=== PATIENT | male | born 1935 | race Caucasian/White ===

== ENCOUNTER → 2017-02-07 | Outpatient (CLI) | payer MEDICARE ==
[~2017-02-07] MED LIST: ASPI81CH32 PO; ASPI81TA45 PO; CIPR500T89 PO; CODCAP PO; ECOT81TA5 PO; EYE CAP PO; HYDR12.55 PO; ICAPTAB PO; PRAV40TA2 PO; [UNRECOGNIZED DRUG - OTHER] PO
--- NOTE | 2017-02-07 09:39 | REP ---
CT HEAD WITHOUT CONTRAST: HISTORY: Dementia. Areas of decreased attenuation are present in the periventricular and subcortical white matter. This represents small vessel ischemic disease. There is no intraparenchymal hemorrhage, mass or midline shift. The ventricular system and cortical sulci are dilated consistent with moderate volume loss. There is no extracerebral collection. The visualized sinuses are clear. IMPRESSION: 1. Small vessel ischemic disease. 2. Moderate volume loss. Signed by Kevin Flores MD 02/07/2017 09:44 A
--- NOTE | 2017-02-07 11:58 | REP ---
CAROTID ULTRASOUND: Real-time ultrasound evaluation and duplex Doppler interrogation of the extracranial carotid vasculature is performed. Moderate partially calcified plaque is seen in both common carotid arteries and carotid bulbs extending into the internal and external carotid arteries, more significantly on the right than on the left. There is elevated peak systolic velocity in the right internal carotid artery with elevation of the ICA to CCA ratio. Findings are consistent with stenosis of the right internal carotid artery between 60 and 79%. Luminal narrowing of the left internal carotid artery is less than 50%. There is normal direction of flow in both vertebral arteries. 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 Luminal narrowing left internal carotid artery less than 50%. Signed by Franklin Olson MD 02/07/2017 05:42 P
== END ==
LOC: M RAD 08:49
PROVIDERS: ATTEND Physician Assistant Medical
DX: I63.8 Other cerebral infarction (principal); F02.81 Dementia in other diseases classified elsewhere, unspecified severity, with behavioral disturbance; R20.2 Paresthesia of skin

== ENCOUNTER → 2017-08-30 | Outpatient (CLI) | payer MEDICARE ==
[~2017-08-30] MED LIST changes: +CIPR-249 PO; -CIPR500T89 PO
== END ==
LOC: M SMT 09:40
PROVIDERS: ATTEND Urology
DX: R97.20 Elevated prostate specific antigen [PSA] (principal)

== ENCOUNTER → 2017-09-07 | Outpatient (REF) | payer MEDICARE | LOC: M SMT 16:57 | PROVIDERS: ATTEND Urology | DX: R39.9 Unspecified symptoms and signs involving the genitourinary system (principal) | CPT/HCPCS: 51798; 81001; G0463 ==

== ENCOUNTER → 2017-09-29 | Outpatient (CLI) | payer MEDICARE ==
[2017-09-29 13:23] LABS: INR 1.86
== END ==
LOC: M SMT 09:49
PROVIDERS: ATTEND Family Medicine
DX: Z51.81 Encounter for therapeutic drug level monitoring (principal); Z79.01 Long term (current) use of anticoagulants

== ENCOUNTER → 2017-10-31 | Outpatient (CLI) | payer MEDICARE ==
[2017-10-31 13:08] LABS: INR 3.86; PROTHROMBIN TIME 39.9 SECONDS (12.4-14.5)
== END ==
LOC: M SMT 09:57
DX: Z51.81 Encounter for therapeutic drug level monitoring (principal); Z79.01 Long term (current) use of anticoagulants
CPT/HCPCS: 85610

== ENCOUNTER → 2017-11-29 | Outpatient (CLI) | payer MEDICARE ==
[2017-11-29 13:40] LABS: INR 3.31; PROTHROMBIN TIME 35.2 SECONDS (12.4-14.5)
== END ==
LOC: M SMT 10:52
DX: Z79.01 Long term (current) use of anticoagulants (principal)
CPT/HCPCS: 85610

== ENCOUNTER → 2017-12-28 | Outpatient (CLI) | payer MEDICARE ==
[2017-12-28 18:52] LABS: INR 2.81; PROTHROMBIN TIME 30.8 SECONDS (12.4-14.5)
== END ==
LOC: M SMT 13:00
DX: Z51.81 Encounter for therapeutic drug level monitoring (principal); Z79.01 Long term (current) use of anticoagulants
CPT/HCPCS: 85610

== ENCOUNTER → 2018-05-15 | Outpatient (CLI) | payer MEDICARE | LOC: M WHC 12:30 | DX: M85.851 Other specified disorders of bone density and structure, right thigh (principal); M85.852 Other specified disorders of bone density and structure, left thigh | CPT/HCPCS: 77080 ==

== ENCOUNTER → 2018-08-15 | Outpatient (CLI) | payer MEDICARE ==
[2018-08-16 14:49] LABS: PSA TOTAL 3.4 ng/mL (0.0-4.0)
== END ==
LOC: M WUC 11:00
DX: N40.1 Benign prostatic hyperplasia with lower urinary tract symptoms (principal)
CPT/HCPCS: 84154

== ENCOUNTER 2019-02-21 10:43 | Day surgery (SDC) | payer MEDICARE ==
[~2019-02-21] VITALS: Ht 154.9 cm; Wt 82.6 kg
[~2019-02-21 10:43] MED LIST changes: +ALEN70TA74 PO; +ARIC1TAB2 PO; -ASPI81CH32 PO; +ASPI81CH33 PO; +ATOR40TA75 PO; -CODCAP PO; +CODCAP4 PO; +LIDOCAINE 1% MDV 20ML VIAL SQ PRN; +LIDOCAINE 2% INJ 100 MG/5 ML SDV (FOR ANES.) As Ordered ONE; +LR 1,000 ML IV ONE; +MIDAZOLAM INJ 2 MG/2 ML VIAL (J2250) As Ordered ONE; +MUCI600T31 PO; +ONDANSETRON 4MG/2ML VIAL (J2405) As Ordered ONE; +PROPOFOL 200 MG/20 ML VIAL As Ordered ONE; +SYST1SOL4 OP; +WARF4TAB51 PO; +ceFAZolin SOD 1 GM in D5W MINI-BAG PLUS 50 ML IV ONE; +dexameTHASONE 4 MG/ML 1ML VIAL (J1100) As Ordered ONE; +fentaNYL 100 MCG/2 ML INJECTION (J3010) As Ordered ONE
[2019-02-21 11:37] LABS: INR 1.59; PROTHROMBIN TIME 19.2 SECONDS (12.1-14.4)
[2019-02-21] MEDS ORDERED: LIDOCAINE 1% SDV INJ 30 ML VIAL As Ordered ONE (13:19)
[2019-02-21] MEDS ORDERED: LIDOCAINE 2% JELLY 6 ML SYRINGE As Ordered ONE (14:10)
--- NOTE | 2019-02-21 14:43 | RO ---
DATE OF OPERATION: 02/21/2019 PREOPERATIVE DIAGNOSIS: Implantable loop recorder in situ. POSTOPERATIVE DIAGNOSIS: Implantable loop recorder in situ. FINDINGS: Implantable loop recorder in situ. PROCEDURE PERFORMED: Explantation of [employer] implantable loop recorder. SURGEON: Felipe Trinidad MD [place] LEGAL SECRETARY: None. ANESTHESIA: Lidocaine 1%/monitored anesthetic care. SPECIMENS: Old Medtronic LINQ implantable loop recorder. ESTIMATED BLOOD LOSS: Less than 3 mL. No blood products replaced. No drains. COMPLICATIONS: No complications. PROCEDURE DESCRIPTION: The patient was prepped and draped over the left anterior chest. Lidocaine 1% was used as a local anesthetic. An incision less than a centimeter was made with a 15 blade over the medial aspect of the loop recorder. The blade was used to dissect down to the level of the anterior capsule overlying the loop recorder. A snap was placed over the loop recorder and used to pull the loop recorder out of the pocket. A single #2-0 Vicryl stitch was used to approximate the deep layer. Next, a #4-0 Biosyn suture was used to approximate the skin temporarily by placing it subcutaneously along the incision line with the ends of the suture material protruding from both ends of the incision about 1 cm. Next, three layers of DERMABOND was applied. The Biosyn suture was then removed entirely from the incision line. The patient tolerated the procedure well without any immediate complications.
[2019-02-21 14:45] VITALS: BP 158/67
== END 2019-02-21 15:00 | disposition home or self-care (01) ==
LOC: M SDC 10:43
PROVIDERS: ATTEND Internal Medicine Cardiovascular Disease
DX: I48.91 Unspecified atrial fibrillation (principal); I25.10 Atherosclerotic heart disease of native coronary artery without angina pectoris; I10 Essential (primary) hypertension; K44.9 Diaphragmatic hernia without obstruction or gangrene; Z87.891 Personal history of nicotine dependence; Z79.01 Long term (current) use of anticoagulants; Z79.899 Other long term (current) drug therapy; F03.90 Unspecified dementia, unspecified severity, without behavioral disturbance, psychotic disturbance, mood disturbance, and anxiety; Z88.2 Allergy status to sulfonamides; Z86.73 Personal history of transient ischemic attack (TIA), and cerebral infarction without residual deficits
CPT/HCPCS: 33286; 36415; 85610; J0690; J1100; J2250; J2405; J3010

== ENCOUNTER → 2019-06-14 | Outpatient (CLI) | payer MEDICARE ==
[~2019-06-14] MED LIST changes: -LIDOCAINE 1% MDV 20ML VIAL SQ PRN; -LIDOCAINE 2% INJ 100 MG/5 ML SDV (FOR ANES.) As Ordered ONE; -LR 1,000 ML IV ONE; -MIDAZOLAM INJ 2 MG/2 ML VIAL (J2250) As Ordered ONE; -ONDANSETRON 4MG/2ML VIAL (J2405) As Ordered ONE; -PROPOFOL 200 MG/20 ML VIAL As Ordered ONE; -ceFAZolin SOD 1 GM in D5W MINI-BAG PLUS 50 ML IV ONE; -dexameTHASONE 4 MG/ML 1ML VIAL (J1100) As Ordered ONE; -fentaNYL 100 MCG/2 ML INJECTION (J3010) As Ordered ONE
[2019-06-14 14:06] LABS: BASO # 0.1 10^3/uL (0.0-0.2); BASO % 0.8 % (0.0-1.0); EOS # 0.2 10^3/uL (0.0-0.5); EOS % 3.5 % (0.0-3.0); HEMATOCRIT 42.7 % (42.0-52.0); HEMOGLOBIN 13.9 g/dl (13.5-17.5); LYMPH # 1.3 10^3/uL (1.5-5.0); LYMPH % 21.4 % (24.0-44.0); MEAN CORPUSCULAR HEMOGLOBIN 30.9 pg (27.0-33.0); MEAN CORPUSCULAR HGB CONC 32.6 g/dl (32.0-36.5); MEAN CORPUSCULAR VOLUME 94.9 fl (80.0-96.0); MONO # 0.7 10^3/uL (0.0-0.8); MONO % 10.7 % (0.0-5.0); NEUTROPHILS # 3.9 10^3/uL (1.5-8.5); NEUTROPHILS % 63.1 % (36.0-66.0); PLATELET COUNT, AUTOMATED 250 10^3/uL (150-450); WHITE BLOOD COUNT 6.3 10^3/uL (4.0-10.0)
[2019-06-14 14:11] LABS: APPEARANCE, URINE CLEAR (CLEAR); BACTERIA, URINE AUTO NEGATIVE (NEGATIVE); BILIRUBIN, URINE AUTO NEGATIVE (NEGATIVE); BLOOD, URINE BLOOD NEGATIVE (NEGATIVE); COLOR, URINE YELLOW (YELLOW); GLUCOSE, URINE (UA) AUTO NEGATIVE (NEGATIVE); KETONE, URINE AUTO NEGATIVE (NEGATIVE); LEUKOCYTE ESTERASE, URINE AUTO TRACE (NEGATIVE); MUCUS, URINE SMALL (NEGATIVE); NITRITE, URINE AUTO NEGATIVE (NEGATIVE); PROTEIN, URINE AUTO NEGATIVE (NEGATIVE); RBC, URINE AUTO 4 /HPF (0-3); SPECIFIC GRAVITY URINE AUTO 1.012 (1.002-1.035); SQUAMOUS EPITHELIAL CELL UR AU 0 /HPF (0-6); UROBILINOGEN, URINE AUTO 0.2 mg/dL (0.0-2.0); WBC, URINE AUTO 1 /HPF (0-3)
[2019-06-14 14:28] LABS: ALBUMIN 3.1 GM/DL (3.2-5.2); ALT/SGPT 30 U/L (12-78); BILIRUBIN,TOTAL 0.6 MG/DL (0.2-1.0); BLOOD UREA NITROGEN 13 MG/DL (7-18); CALCIUM LEVEL 8.7 MG/DL (8.8-10.2); CARBON DIOXIDE LEVEL 29 MEQ/L (21-32); CHLORIDE LEVEL 106 MEQ/L (98-107); CHOLESTEROL LEVEL 152 MG/DL (<200); CHOLESTEROL RISK RATIO 4.342 (<5); CREATININE FOR GFR 1.11 MG/DL (0.70-1.30); FREE T4 0.98 NG/DL (0.76-1.46); GLOMERULAR FILTRATION RATE > 60.0 (>35); GLUCOSE, FASTING 88 MG/DL (70-100); HDL CHOLESTEROL 35 MG/DL (>40); LDL CHOLESTEROL 65 MG/DL (<100); NON-HDL-C 117 MG/DL; POTASSIUM SERUM 4.3 MEQ/L (3.5-5.1); SODIUM LEVEL 142 MEQ/L (136-145); TOTAL PROTEIN 6.2 GM/DL (6.4-8.2); TRIGLYCERIDES LEVEL 259 MG/DL (<150)
== END ==
LOC: M WUC 08:18
PROVIDERS: ATTEND Family Medicine
DX: E78.5 Hyperlipidemia, unspecified (principal)

== ENCOUNTER → 2019-06-21 | Outpatient (REF) | payer MEDICARE ==
[2019-06-21 12:15] LABS: APPEARANCE, URINE HAZY (CLEAR); BACTERIA, URINE AUTO NEGATIVE (NEGATIVE); BILIRUBIN, URINE AUTO NEGATIVE (NEGATIVE); BLOOD, URINE BLOOD NEGATIVE (NEGATIVE); COLOR, URINE YELLOW (YELLOW); GLUCOSE, URINE (UA) AUTO NEGATIVE (NEGATIVE); KETONE, URINE AUTO NEGATIVE (NEGATIVE); LEUKOCYTE ESTERASE, URINE AUTO TRACE (NEGATIVE); MUCUS, URINE SMALL (NEGATIVE); NITRITE, URINE AUTO NEGATIVE (NEGATIVE); PROTEIN, URINE AUTO NEGATIVE (NEGATIVE); RBC, URINE AUTO 9 /HPF (0-3); SQUAMOUS EPITHELIAL CELL UR AU 0 /HPF (0-6); UROBILINOGEN, URINE AUTO 0.2 mg/dL (0.0-2.0); WBC, URINE AUTO 10 /HPF (0-3)
== END ==
LOC: M LAB REF 11:18
PROVIDERS: ATTEND Family Medicine
DX: R31.29 Other microscopic hematuria (principal)

== ENCOUNTER → 2019-06-27 | Outpatient (REF) | payer MEDICARE ==
[2019-06-27 19:38] LABS: APPEARANCE, URINE CLEAR (CLEAR); BACTERIA, URINE AUTO NEGATIVE (NEGATIVE); BILIRUBIN, URINE AUTO NEGATIVE (NEGATIVE); BLOOD, URINE BLOOD NEGATIVE (NEGATIVE); COLOR, URINE YELLOW (YELLOW); GLUCOSE, URINE (UA) AUTO NEGATIVE (NEGATIVE); KETONE, URINE AUTO NEGATIVE (NEGATIVE); LEUKOCYTE ESTERASE, URINE AUTO NEGATIVE (NEGATIVE); MUCUS, URINE SMALL (NEGATIVE); NITRITE, URINE AUTO NEGATIVE (NEGATIVE); PROTEIN, URINE AUTO NEGATIVE (NEGATIVE); RBC, URINE AUTO 9 /HPF (0-3); SPECIFIC GRAVITY URINE AUTO 1.019 (1.002-1.035); SQUAMOUS EPITHELIAL CELL UR AU 0 /HPF (0-6); UROBILINOGEN, URINE AUTO 0.2 mg/dL (0.0-2.0); WBC, URINE AUTO 1 /HPF (0-3)
== END ==
LOC: M LAB REF 16:54
PROVIDERS: ATTEND Family Medicine
DX: R31.29 Other microscopic hematuria (principal)

== ENCOUNTER → 2019-07-04 | Outpatient (REF) | payer MEDICARE ==
[2019-07-04 18:05] LABS: APPEARANCE, URINE CLEAR (CLEAR); BACTERIA, URINE AUTO NEGATIVE (NEGATIVE); BILIRUBIN, URINE AUTO NEGATIVE (NEGATIVE); BLOOD, URINE BLOOD NEGATIVE (NEGATIVE); COLOR, URINE YELLOW (YELLOW); GLUCOSE, URINE (UA) AUTO NEGATIVE (NEGATIVE); KETONE, URINE AUTO NEGATIVE (NEGATIVE); LEUKOCYTE ESTERASE, URINE AUTO NEGATIVE (NEGATIVE); MUCUS, URINE SMALL (NEGATIVE); NITRITE, URINE AUTO NEGATIVE (NEGATIVE); PROTEIN, URINE AUTO NEGATIVE (NEGATIVE); RBC, URINE AUTO 7 /HPF (0-3); SPECIFIC GRAVITY URINE AUTO 1.021 (1.002-1.035); SQUAMOUS EPITHELIAL CELL UR AU 0 /HPF (0-6); UROBILINOGEN, URINE AUTO 0.2 mg/dL (0.0-2.0); WBC, URINE AUTO 2 /HPF (0-3)
== END ==
LOC: M LAB REF 16:30
PROVIDERS: ATTEND Family Medicine
DX: R31.29 Other microscopic hematuria (principal)

== ENCOUNTER → 2019-07-12 | Outpatient (CLI) | payer MEDICARE | LOC: M WUC 10:40 | PROVIDERS: ATTEND Family Medicine | DX: R79.89 Other specified abnormal findings of blood chemistry (principal) ==

== ENCOUNTER 2019-10-06 20:19 | Emergency (ER) | payer MEDICARE ==
[~2019-10-06] VITALS: Ht 157.5 cm; Wt 85.0 kg
[~2019-10-06 20:19] MED LIST changes: -CODCAP4 PO; +CODCAP5 PO
[2019-10-06] MEDS ORDERED: MECLIZINE 25 MG TABLET PO ONE (21:00)
--- NOTE | 2019-10-06 21:43 | REPVR ---
PROCEDURE INFORMATION: Exam: CT Head Without Contrast Exam date and time: 10/06/19 (9:09pm) Age: 84 years old Clinical indication: Syncope and collapse TECHNIQUE: Imaging protocol: Computed tomography of the head without contrast. Radiation optimization: All CT scans at this facility use at least one of these dose optimization techniques: automated exposure control; mA and/or kV adjustment per patient size (includes targeted exams where dose is matched to clinical indication); or iterative reconstruction. COMPARISON: CT HEAD of 02/07/17 FINDINGS: Brain: No acute hemorrhage. No cerebral edema. Age-related atrophic changes are noted. Periventricular and subcortical areas of low attenuation, compatible with chronic small vessel microischemic changes.Normal. No hemorrhage. Unremarkable white matter. No mass effect. Ventricles: Probable compensatory dilatation of the ventricles, secondary to central atrophy. Bones/joints: Unremarkable. No acute fracture. Sinuses: Visualized sinuses are unremarkable. No fluid levels. Mastoid air cells: Visualized mastoid air cells are well aerated. Soft tissues: Unremarkable. IMPRESSION: No acute intracranial pathology is appreciated. Chronic atrophic and microischemic changes are noted. In general, a similar appearance was noted on 02/07/17. Electronically signed by: Lily Vaughn On 10/06/2019 21:43:15 PM
[2019-10-06 22:20] LABS: BASO % 0.5 % (0.0-1.0); EOS # 0.1 10^3/uL (0.0-0.5); EOS % 1.8 % (0.0-3.0); HEMATOCRIT 43.7 % (42.0-52.0); HEMOGLOBIN 14.1 g/dl (13.5-17.5); LYMPH % 12.7 % (24.0-44.0); MEAN CORPUSCULAR HEMOGLOBIN 30.3 pg (27.0-33.0); MEAN CORPUSCULAR HGB CONC 32.3 g/dl (32.0-36.5); MONO # 0.7 10^3/uL (0.0-0.8); MONO % 8.8 % (0.0-5.0); NEUTROPHILS % 75.7 % (36.0-66.0); PLATELET COUNT, AUTOMATED 276 10^3/uL (150-450); RED BLOOD COUNT 4.65 10^6/uL (4.30-6.10); WHITE BLOOD COUNT 7.9 10^3/uL (4.0-10.0)
[2019-10-06 22:36] LABS: BLOOD UREA NITROGEN 16 MG/DL (7-18); CALCIUM LEVEL 8.6 MG/DL (8.8-10.2); CARBON DIOXIDE LEVEL 27 MEQ/L (21-32); CHLORIDE LEVEL 109 MEQ/L (98-107); CK-MB VALUE MASS < 1.0 NG/ML (<3.6); CPK CREATINE PHOSPHOKINASE 61 U/L (39-308); CREATININE FOR GFR 1.12 MG/DL (0.70-1.30); FREE T4 0.93 NG/DL (0.76-1.46); GLOMERULAR FILTRATION RATE > 60.0 (>35); GLUCOSE, FASTING 126 MG/DL (70-100); MB/CK RELATIVE INDEX 1.64 (< OR =4); POTASSIUM SERUM 4.2 MEQ/L (3.5-5.1); SODIUM LEVEL 143 MEQ/L (136-145); TROPONIN I < 0.02 NG/ML (< 0.10)
[2019-10-06 22:37] LABS: INR 2.86; PROTHROMBIN TIME 29.9 SECONDS (11.8-14.0)
[2019-10-06 23:01] VITALS: BP 148/68
[2019-10-06] MEDS ORDERED: MECL-68 PO (23:20)
--- NOTE | 2019-10-07 07:42 | REP ---
Clinical: Syncope . Comparison: 12/05/2014 . Findings: Cardiomegaly. The lung awad are clear without acute consolidation, effusion, or pneumothorax. Skeletal structures are intact. Impression: No acute cardiopulmonary process appreciated. Electronically Signed by Mason Horn MD 10/07/2019 07:33 A
--- NOTE | 2019-10-07 15:44 | ECGEPIP ---
[facility] - ED Test Date: 2019-10-06 Pat Name: ALEXANDRA MARCANO Department: Room: - Gender: Male Community Relations Liaison: KCJ : 1935 Requested By: CT LUCERO Order Number: [id number] Reading MD: Sarwat Cool Measurements Intervals [place] Rate: 74 P: -1 NE: 136 QRS: 10 QRSD: 85 T: 76 QT: 387 QTc: 430 Interpretive Statements SINUS RHYTHM NONSPECIFIC T-WAVE ABNORMALITY SIMILAR TO 12/05/14 Electronically Signed on 10-07-2019 15:44:28 EST by Sarwat Cool
== END 2019-10-06 23:42 | disposition home or self-care (01) ==
LOC: M ED 20:19
DX: R42 Dizziness and giddiness (principal); I51.9 Heart disease, unspecified; Z79.01 Long term (current) use of anticoagulants; Z79.899 Other long term (current) drug therapy; Z88.2 Allergy status to sulfonamides; Z88.1 Allergy status to other antibiotic agents

== ENCOUNTER 2020-01-11 10:02 | Emergency (ER) | payer MEDICARE ==
[~2020-01-11] VITALS: Ht 154.9 cm; Wt 85.5 kg
[~2020-01-11 10:02] MED LIST changes: +MECL1TAB31 PO
[2020-01-11] MEDS ORDERED: ALEN70TA74 PO (10:15)
--- NOTE | 2020-01-11 11:53 | REP ---
Left lower extremity Duplex Doppler venous ultrasound: Real time compression and duplex Doppler interrogation of the left lower extremity deep venous system is performed. The left common femoral, superficial femoral and popliteal veins are fully compressible with transducer pressure and demonstrate normal spontaneous and phasic flow, without evidence of deep venous thrombosis. Impression: No evidence of deep venous thrombosis of the left lower extremity femoral popliteal venous system. Electronically Signed by Franklin Olson MD 01/11/2020 11:45 A
[2020-01-11 12:21] VITALS: BP 148/88
== END 2020-01-11 12:32 | disposition home or self-care (01) ==
LOC: M ED 10:02
DX: M54.32 Sciatica, left side (principal); Z87.891 Personal history of nicotine dependence; I48.0 Paroxysmal atrial fibrillation; K44.9 Diaphragmatic hernia without obstruction or gangrene; Z79.01 Long term (current) use of anticoagulants; Z79.899 Other long term (current) drug therapy; Z88.2 Allergy status to sulfonamides; Z88.1 Allergy status to other antibiotic agents

== ENCOUNTER 2021-10-07 13:51 | Inpatient (IN) | payer MEDICARE, OTHER ==
[~2021-10-07 13:51] MED LIST changes: -ALEN70TA74 PO; +ALEN70TA82 PO
[2021-10-07 15:07] LABS: BASO # 0.1 10^3/uL (0.0-0.2); BASO % 0.5 % (0.0-1.0); EOS # 0.3 10^3/uL (0.0-0.5); HEMATOCRIT 43.3 % (42.0-52.0); HEMOGLOBIN 13.2 g/dl (13.5-17.5); LYMPH # 1.1 10^3/uL (1.5-5.0); LYMPH % 8.3 % (24.0-44.0); MEAN CORPUSCULAR HEMOGLOBIN 28.4 pg (27.0-33.0); MEAN CORPUSCULAR HGB CONC 30.5 g/dl (32.0-36.5); MEAN CORPUSCULAR VOLUME 93.3 fl (80.0-96.0); MONO # 1.2 10^3/uL (0.0-0.8); MONO % 8.9 % (2.0-8.0); NEUTROPHILS # 10.5 10^3/uL (1.5-8.5); NEUTROPHILS % 79.7 % (36.0-66.0); PLATELET COUNT, AUTOMATED 420 10^3/uL (150-450); RED BLOOD COUNT 4.64 10^6/uL (4.30-6.10); WHITE BLOOD COUNT 13.2 10^3/uL (4.0-10.0)
[2021-10-07 15:20] LABS: INR 1.72; PARTIAL THROMBOPLASTIN TIME 41.9 SECONDS (25.9-37.0); PROTHROMBIN TIME 20.6 SECONDS (12.7-14.5)
[2021-10-07 15:48] LABS: ALBUMIN 2.4 GM/DL (3.2-5.2); ALT/SGPT 40 U/L (12-78); BILIRUBIN,DIRECT 0.1 MG/DL (0.0-0.2); BILIRUBIN,TOTAL 0.5 MG/DL (0.2-1.0); BLOOD UREA NITROGEN 14 MG/DL (7-18); CALCIUM LEVEL 8.6 MG/DL (8.8-10.2); CARBON DIOXIDE LEVEL 30 MEQ/L (21-32); CHLORIDE LEVEL 105 MEQ/L (98-107); CREATININE FOR GFR 1.06 MG/DL (0.70-1.30); GLOMERULAR FILTRATION RATE > 60.0 (>35); GLUCOSE, FASTING 109 MG/DL (70-100); POTASSIUM SERUM 4.5 MEQ/L (3.5-5.1); SODIUM LEVEL 140 MEQ/L (136-145); TOTAL PROTEIN 6.4 GM/DL (6.4-8.2)
[2021-10-07] MEDS ORDERED: LACTULOSE 20 GM/30 ML SYRUP UD PO ONE (16:10)
[2021-10-07] MEDS ORDERED: MOM 30ML SUSPENSION UDC PO PRN (17:15)
[2021-10-07] MEDS ORDERED: ACETAMINOPHEN TAB 650MG DOSE (2X325MG) PO PRN (17:15)
[2021-10-07] MEDS ORDERED: MAALOX 30 ML SUSP *UDC PO PRN (17:15)
[2021-10-07] MEDS ORDERED: ASPIRIN 325 MG TAB PO ONE (17:25)
[2021-10-07] MEDS ORDERED: ATOR40TA75 PO (17:39)
[2021-10-07] MEDS ORDERED: VITAD400CA FT (17:43)
[2021-10-07] MEDS ORDERED: vitamin (17:43)
[2021-10-07] MEDS ORDERED: ICAPTAB PO (17:43)
[2021-10-07] MEDS ORDERED: WARF4TAB51 PO (17:43)
[2021-10-07] MEDS ORDERED: vitamin d PO (17:46)
[2021-10-07] MEDS ORDERED: HOME MED LIST COMPLETE! XX SCH (17:50)
[2021-10-07] MEDS: CARVedilol 12.5 MG TAB PO SCH (17:56)
[2021-10-07] MEDS: cefTRIAXone SOD 1 GM in D5W MINI-BAG PLUS 50 ML IV SCH (17:58)
[2021-10-07 19:24] LABS: RSV AMPLIFICATION NEGATIVE (NEGATIVE)
[2021-10-07 20:06] LABS: CHOLESTEROL LEVEL 113 MG/DL (<200); CHOLESTEROL RISK RATIO 2.825 (<5); HDL CHOLESTEROL 40 MG/DL (>40); LDL CHOLESTEROL 52 MG/DL (<100); NON-HDL-C 73 MG/DL; TRIGLYCERIDES LEVEL 104 MG/DL (<150)
[2021-10-07 21:30] VITALS: BP 140/65
[2021-10-07] MEDS: WARFARIN SOD 2MG TAB PO SCH (23:17)
[2021-10-07] MEDS: ATORVASTATIN 20 MG TAB PO SCH (23:17)
[2021-10-07] MEDS: DOCUSATE SODIUM 100MG CAPSULE PO SCH (23:17)
[2021-10-08] VITALS (7 sets, daily range): BP systolic 102–139; BP diastolic 54–79
[2021-10-08 05:28] LABS: BASO # 0.1 10^3/uL (0.0-0.2); BASO % 0.5 % (0.0-1.0); EOS # 0.3 10^3/uL (0.0-0.5); HEMATOCRIT 36.9 % (42.0-52.0); HEMOGLOBIN 11.7 g/dl (13.5-17.5); LYMPH # 1.3 10^3/uL (1.5-5.0); LYMPH % 11.4 % (24.0-44.0); MEAN CORPUSCULAR HEMOGLOBIN 28.7 pg (27.0-33.0); MEAN CORPUSCULAR HGB CONC 31.7 g/dl (32.0-36.5); MEAN CORPUSCULAR VOLUME 90.7 fl (80.0-96.0); MONO % 8.9 % (2.0-8.0); NEUTROPHILS # 8.3 10^3/uL (1.5-8.5); NEUTROPHILS % 75.6 % (36.0-66.0); PLATELET COUNT, AUTOMATED 383 10^3/uL (150-450); RED BLOOD COUNT 4.07 10^6/uL (4.30-6.10)
[2021-10-08 05:40] LABS: INR 1.89; PROTHROMBIN TIME 22.1 SECONDS (12.7-14.5)
[2021-10-08 06:00] LABS: BLOOD UREA NITROGEN 16 MG/DL (7-18); CALCIUM LEVEL 8.3 MG/DL (8.8-10.2); CARBON DIOXIDE LEVEL 24 MEQ/L (21-32); CHLORIDE LEVEL 108 MEQ/L (98-107); CREATININE FOR GFR 0.96 MG/DL (0.70-1.30); GLOMERULAR FILTRATION RATE > 60.0 (>35); GLUCOSE, FASTING 97 MG/DL (70-100); MAGNESIUM LEVEL 2.2 MG/DL (1.8-2.4); SODIUM LEVEL 138 MEQ/L (136-145)
[2021-10-08] MEDS: DOCUSATE SODIUM 100MG CAPSULE PO SCH ×2 (08:09→19:36)
[2021-10-08] MEDS: ATORVASTATIN 20 MG TAB PO SCH (08:09)
[2021-10-08] MEDS: CARVedilol 12.5 MG TAB PO SCH (08:46)
[2021-10-08] MEDS ORDERED: ASPIRIN 81MG ENTERIC TABLET PO SCH (09:00)
[2021-10-08] MEDS: cefTRIAXone SOD 1 GM in D5W MINI-BAG PLUS 50 ML IV SCH (17:25)
[2021-10-08] MEDS: WARFARIN SOD 2MG TAB PO SCH (17:25)
[2021-10-09 06:00] VITALS: BP 158/99
[2021-10-09 06:01] LABS: BASO # 0.1 10^3/uL (0.0-0.2); BASO % 0.4 % (0.0-1.0); EOS # 0.4 10^3/uL (0.0-0.5); EOS % 2.9 % (0.0-3.0); HEMATOCRIT 38.1 % (42.0-52.0); HEMOGLOBIN 12.2 g/dl (13.5-17.5); LYMPH # 1.2 10^3/uL (1.5-5.0); LYMPH % 9.1 % (24.0-44.0); MEAN CORPUSCULAR HEMOGLOBIN 28.6 pg (27.0-33.0); MEAN CORPUSCULAR VOLUME 89.2 fl (80.0-96.0); MONO % 7.6 % (2.0-8.0); NEUTROPHILS # 10.4 10^3/uL (1.5-8.5); NEUTROPHILS % 79.5 % (36.0-66.0); PLATELET COUNT, AUTOMATED 386 10^3/uL (150-450); RED BLOOD COUNT 4.27 10^6/uL (4.30-6.10); WHITE BLOOD COUNT 13.1 10^3/uL (4.0-10.0)
[2021-10-09 06:08] LABS: INR 1.98; PROTHROMBIN TIME 22.9 SECONDS (12.7-14.5)
[2021-10-09 06:22] LABS: BLOOD UREA NITROGEN 16 MG/DL (7-18); CALCIUM LEVEL 8.1 MG/DL (8.8-10.2); CARBON DIOXIDE LEVEL 26 MEQ/L (21-32); CHLORIDE LEVEL 107 MEQ/L (98-107); CREATININE FOR GFR 0.96 MG/DL (0.70-1.30); GLOMERULAR FILTRATION RATE > 60.0 (>35); GLUCOSE, FASTING 100 MG/DL (70-100); MAGNESIUM LEVEL 2.2 MG/DL (1.8-2.4); SODIUM LEVEL 139 MEQ/L (136-145)
[2021-10-09] MEDS: DOCUSATE SODIUM 100MG CAPSULE PO SCH ×2 (08:02→20:32)
[2021-10-09 14:00] VITALS: BP 118/52
[2021-10-09] MEDS: WARFARIN SOD 2MG TAB PO SCH (18:16)
[2021-10-09] MEDS: ASPIRIN 81MG ENTERIC TABLET PO SCH (18:16)
[2021-10-09] MEDS: cefTRIAXone SOD 1 GM in D5W MINI-BAG PLUS 50 ML IV SCH (18:17)
[2021-10-09 22:00] VITALS: BP 130/61
[2021-10-10 06:00] VITALS: BP 116/58
[2021-10-10 07:03] LABS: BASO # 0.1 10^3/uL (0.0-0.2); BASO % 0.6 % (0.0-1.0); EOS # 0.4 10^3/uL (0.0-0.5); EOS % 3.1 % (0.0-3.0); HEMATOCRIT 36.4 % (42.0-52.0); HEMOGLOBIN 11.8 g/dl (13.5-17.5); LYMPH # 1.6 10^3/uL (1.5-5.0); MEAN CORPUSCULAR HEMOGLOBIN 29.1 pg (27.0-33.0); MEAN CORPUSCULAR HGB CONC 32.4 g/dl (32.0-36.5); MEAN CORPUSCULAR VOLUME 89.9 fl (80.0-96.0); MONO # 1.1 10^3/uL (0.0-0.8); MONO % 8.6 % (2.0-8.0); NEUTROPHILS # 9.7 10^3/uL (1.5-8.5); PLATELET COUNT, AUTOMATED 424 10^3/uL (150-450); RED BLOOD COUNT 4.05 10^6/uL (4.30-6.10)
[2021-10-10 07:13] LABS: INR 1.76
[2021-10-10 07:18] LABS: BLOOD UREA NITROGEN 19 MG/DL (7-18); CALCIUM LEVEL 8.3 MG/DL (8.8-10.2); CARBON DIOXIDE LEVEL 25 MEQ/L (21-32); CHLORIDE LEVEL 107 MEQ/L (98-107); CREATININE FOR GFR 0.98 MG/DL (0.70-1.30); GLOMERULAR FILTRATION RATE > 60.0 (>35); GLUCOSE, FASTING 86 MG/DL (70-100); MAGNESIUM LEVEL 2.4 MG/DL (1.8-2.4); POTASSIUM SERUM 3.9 MEQ/L (3.5-5.1); SODIUM LEVEL 140 MEQ/L (136-145)
[2021-10-10] MEDS: NS 1,000 ML IV SCH (09:14)
[2021-10-10] MEDS: ASPIRIN 81MG ENTERIC TABLET PO SCH (09:14)
[2021-10-10] MEDS: DOCUSATE SODIUM 100MG CAPSULE PO SCH ×2 (09:14→20:49)
[2021-10-10] MEDS ORDERED: HALOPERIDOL 5MG/ML VIAL (J1630 PER 1) IV PRN (10:25)
[2021-10-10 11:11] LABS: C REACTIVE PROTEIN QUANTITATIV 6.49 MG/DL (0.00-0.30); FREE T4 1.31 NG/DL (0.76-1.46)
[2021-10-10] MEDS: PIPERACILLIN/TAZOBACTAM SOD 3.375 GM in D5W MINI-BAG PLUS 50 ML IV SCH ×3 (12:09→23:56)
[2021-10-10 14:00] VITALS: BP 128/70
[2021-10-10] MEDS ORDERED: ISOVUE-370 76% 100ML VIAL As Ordered ONE (14:04)
[2021-10-10] MEDS: WARFARIN SOD 3MG TAB PO SCH (17:10)
[2021-10-10 22:00] VITALS: BP 139/79
[2021-10-11] MEDS: NS 1,000 ML IV SCH (00:20)
[2021-10-11] MEDS: PIPERACILLIN/TAZOBACTAM SOD 3.375 GM in D5W MINI-BAG PLUS 50 ML IV SCH (05:33)
[2021-10-11 06:00] VITALS: BP 140/67
[2021-10-11 07:30] LABS: BASO # 0.1 10^3/uL (0.0-0.2); BASO % 0.5 % (0.0-1.0); EOS # 0.4 10^3/uL (0.0-0.5); HEMATOCRIT 38.4 % (42.0-52.0); HEMOGLOBIN 12.3 g/dl (13.5-17.5); LYMPH # 1.1 10^3/uL (1.5-5.0); LYMPH % 8.4 % (24.0-44.0); MEAN CORPUSCULAR HEMOGLOBIN 28.7 pg (27.0-33.0); MEAN CORPUSCULAR VOLUME 89.7 fl (80.0-96.0); MONO % 7.6 % (2.0-8.0); NEUTROPHILS # 10.7 10^3/uL (1.5-8.5); NEUTROPHILS % 80.1 % (36.0-66.0); PLATELET COUNT, AUTOMATED 414 10^3/uL (150-450); RED BLOOD COUNT 4.28 10^6/uL (4.30-6.10); WHITE BLOOD COUNT 13.4 10^3/uL (4.0-10.0)
[2021-10-11 07:37] LABS: INR 2.09; PROTHROMBIN TIME 23.9 SECONDS (12.7-14.5)
[2021-10-11 08:01] LABS: BLOOD UREA NITROGEN 14 MG/DL (7-18); CALCIUM LEVEL 8.2 MG/DL (8.8-10.2); CARBON DIOXIDE LEVEL 25 MEQ/L (21-32); CHLORIDE LEVEL 107 MEQ/L (98-107); CREATININE FOR GFR 0.99 MG/DL (0.70-1.30); GLOMERULAR FILTRATION RATE > 60.0 (>35); GLUCOSE, FASTING 100 MG/DL (70-100); MAGNESIUM LEVEL 2.2 MG/DL (1.8-2.4); SODIUM LEVEL 140 MEQ/L (136-145)
[2021-10-11] MEDS: DOCUSATE SODIUM 100MG CAPSULE PO SCH ×2 (09:06→21:39)
[2021-10-11] MEDS: ASPIRIN 81MG ENTERIC TABLET PO SCH (09:06)
[2021-10-11] MEDS: OLANZapine INTRAMUSCULAR 10MG VIAL IM SCH ×2 (10:13→21:39)
[2021-10-11 14:00] VITALS: BP 130/73
[2021-10-11] MEDS: WARFARIN SOD 3MG TAB PO SCH (17:03)
[2021-10-11 21:00] VITALS: BP 133/71
[2021-10-12 05:53] VITALS: BP 158/84
[2021-10-12 07:08] LABS: BASO # 0.1 10^3/uL (0.0-0.2); BASO % 0.6 % (0.0-1.0); EOS # 0.4 10^3/uL (0.0-0.5); EOS % 2.6 % (0.0-3.0); HEMATOCRIT 40.8 % (42.0-52.0); HEMOGLOBIN 12.8 g/dl (13.5-17.5); LYMPH # 1.1 10^3/uL (1.5-5.0); LYMPH % 8.1 % (24.0-44.0); MEAN CORPUSCULAR HEMOGLOBIN 28.8 pg (27.0-33.0); MEAN CORPUSCULAR HGB CONC 31.4 g/dl (32.0-36.5); MEAN CORPUSCULAR VOLUME 91.7 fl (80.0-96.0); MONO % 6.7 % (2.0-8.0); NEUTROPHILS # 11.5 10^3/uL (1.5-8.5); NEUTROPHILS % 81.5 % (36.0-66.0); PLATELET COUNT, AUTOMATED 408 10^3/uL (150-450); RED BLOOD COUNT 4.45 10^6/uL (4.30-6.10); WHITE BLOOD COUNT 14.1 10^3/uL (4.0-10.0)
[2021-10-12 07:23] LABS: BLOOD UREA NITROGEN 13 MG/DL (7-18); CALCIUM LEVEL 8.6 MG/DL (8.8-10.2); CARBON DIOXIDE LEVEL 23 MEQ/L (21-32); CHLORIDE LEVEL 109 MEQ/L (98-107); CREATININE FOR GFR 0.96 MG/DL (0.70-1.30); GLOMERULAR FILTRATION RATE > 60.0 (>35); GLUCOSE, FASTING 96 MG/DL (70-100); MAGNESIUM LEVEL 2.3 MG/DL (1.8-2.4); POTASSIUM SERUM 4.7 MEQ/L (3.5-5.1); SODIUM LEVEL 141 MEQ/L (136-145)
[2021-10-12 08:20] LABS: INR 2.1; PROTHROMBIN TIME 23.9 SECONDS (12.7-14.5)
[2021-10-12] MEDS: ASPIRIN 81MG ENTERIC TABLET PO SCH (08:21)
[2021-10-12] MEDS: OLANZapine INTRAMUSCULAR 10MG VIAL IM SCH (08:21)
[2021-10-12] MEDS: DOCUSATE SODIUM 100MG CAPSULE PO SCH ×2 (08:21→23:25)
[2021-10-12] MEDS: QUEtiapine FUMARATE 25 MG TAB PO SCH ×2 (09:00→23:25)
[2021-10-12 09:36] LABS: C REACTIVE PROTEIN QUANTITATIV 6.29 MG/DL (0.00-0.30)
[2021-10-12 14:00] VITALS: BP 112/72
[2021-10-12] MEDS: WARFARIN SOD 3MG TAB PO SCH (16:10)
[2021-10-12] MEDS ORDERED: OLANZapine INTRAMUSCULAR 10MG VIAL IM PRN (21:00)
[2021-10-12 22:00] VITALS: BP 118/65
[2021-10-13 06:00] VITALS: BP 125/76
[2021-10-13 07:28] LABS: BASO # 0.1 10^3/uL (0.0-0.2); BASO % 0.6 % (0.0-1.0); EOS # 0.4 10^3/uL (0.0-0.5); EOS % 3.7 % (0.0-3.0); HEMATOCRIT 39.5 % (42.0-52.0); HEMOGLOBIN 12.4 g/dl (13.5-17.5); LYMPH # 1.1 10^3/uL (1.5-5.0); LYMPH % 9.5 % (24.0-44.0); MEAN CORPUSCULAR HEMOGLOBIN 28.6 pg (27.0-33.0); MEAN CORPUSCULAR HGB CONC 31.4 g/dl (32.0-36.5); MONO % 8.2 % (2.0-8.0); NEUTROPHILS # 9.1 10^3/uL (1.5-8.5); NEUTROPHILS % 77.3 % (36.0-66.0); PLATELET COUNT, AUTOMATED 424 10^3/uL (150-450); RED BLOOD COUNT 4.34 10^6/uL (4.30-6.10); WHITE BLOOD COUNT 11.7 10^3/uL (4.0-10.0)
[2021-10-13 07:40] LABS: INR 2.47; PROTHROMBIN TIME 27.1 SECONDS (12.7-14.5)
[2021-10-13 07:48] LABS: BLOOD UREA NITROGEN 17 MG/DL (7-18); CARBON DIOXIDE LEVEL 26 MEQ/L (21-32); CHLORIDE LEVEL 108 MEQ/L (98-107); CREATININE FOR GFR 1.21 MG/DL (0.70-1.30); GLOMERULAR FILTRATION RATE > 60.0 (>35); GLUCOSE, FASTING 87 MG/DL (70-100); MAGNESIUM LEVEL 2.4 MG/DL (1.8-2.4); SODIUM LEVEL 142 MEQ/L (136-145)
[2021-10-13] MEDS: DOCUSATE SODIUM 100MG CAPSULE PO SCH ×2 (09:30→21:07)
[2021-10-13] MEDS: ASPIRIN 81MG ENTERIC TABLET PO SCH (09:30)
[2021-10-13] MEDS: QUEtiapine FUMARATE 25 MG TAB PO SCH ×2 (09:30→21:08)
[2021-10-13] MEDS: WARFARIN SOD 3MG TAB PO SCH (17:24)
[2021-10-14 06:00] VITALS: BP 147/77
[2021-10-14 06:43] LABS: INR 2.53; PROTHROMBIN TIME 27.6 SECONDS (12.7-14.5)
[2021-10-14] MEDS: DOCUSATE SODIUM 100MG CAPSULE PO SCH ×2 (08:53→21:25)
[2021-10-14] MEDS: QUEtiapine FUMARATE 25 MG TAB PO SCH ×2 (08:53→21:25)
[2021-10-14] MEDS: ASPIRIN 81MG ENTERIC TABLET PO SCH (08:53)
[2021-10-14] MEDS: WARFARIN SOD 3MG TAB PO SCH (17:56)
[2021-10-15 06:00] VITALS: BP 173/88
[2021-10-15] MEDS: QUEtiapine FUMARATE 25 MG TAB PO SCH ×2 (08:57→20:01)
[2021-10-15] MEDS: ASPIRIN 81MG ENTERIC TABLET PO SCH (08:57)
[2021-10-15] MEDS: DOCUSATE SODIUM 100MG CAPSULE PO SCH ×2 (08:57→20:01)
[2021-10-15] MEDS: WARFARIN SOD 3MG TAB PO SCH (16:25)
[2021-10-16 05:54] LABS: HEMATOCRIT 37.2 % (42.0-52.0); HEMOGLOBIN 11.8 g/dl (13.5-17.5); MEAN CORPUSCULAR HEMOGLOBIN 28.5 pg (27.0-33.0); MEAN CORPUSCULAR HGB CONC 31.7 g/dl (32.0-36.5); MEAN CORPUSCULAR VOLUME 89.9 fl (80.0-96.0); PLATELET COUNT, AUTOMATED 396 10^3/uL (150-450); RED BLOOD COUNT 4.14 10^6/uL (4.30-6.10); WHITE BLOOD COUNT 11.7 10^3/uL (4.0-10.0)
[2021-10-16 06:00] VITALS: BP 127/70
[2021-10-16 06:04] LABS: INR 2.33; PROTHROMBIN TIME 25.9 SECONDS (12.7-14.5)
[2021-10-16 06:14] LABS: BLOOD UREA NITROGEN 21 MG/DL (7-18); CALCIUM LEVEL 8.3 MG/DL (8.8-10.2); CARBON DIOXIDE LEVEL 27 MEQ/L (21-32); CHLORIDE LEVEL 107 MEQ/L (98-107); GLOMERULAR FILTRATION RATE > 60.0 (>35); GLUCOSE, FASTING 98 MG/DL (70-100); POTASSIUM SERUM 4.2 MEQ/L (3.5-5.1); SODIUM LEVEL 141 MEQ/L (136-145)
[2021-10-16] MEDS: ASPIRIN 81MG ENTERIC TABLET PO SCH (08:32)
[2021-10-16] MEDS: DOCUSATE SODIUM 100MG CAPSULE PO SCH ×2 (08:32→21:07)
[2021-10-16] MEDS: QUEtiapine FUMARATE 25 MG TAB PO SCH ×2 (08:33→21:08)
[2021-10-16] MEDS: WARFARIN SOD 3MG TAB PO SCH (17:48)
[2021-10-17 06:00] VITALS: BP 125/76
[2021-10-17] MEDS: ASPIRIN 81MG ENTERIC TABLET PO SCH (09:04)
[2021-10-17] MEDS: DOCUSATE SODIUM 100MG CAPSULE PO SCH ×2 (09:04→20:30)
[2021-10-17] MEDS: QUEtiapine FUMARATE 25 MG TAB PO SCH ×2 (09:05→20:30)
[2021-10-17] MEDS: WARFARIN SOD 3MG TAB PO SCH (18:01)
[2021-10-17 20:00] VITALS: BP 125/76
[2021-10-18 06:00] VITALS: BP 120/74
[2021-10-18] MEDS: DOCUSATE SODIUM 100MG CAPSULE PO SCH ×2 (11:51→21:46)
[2021-10-18] MEDS: ASPIRIN 81MG ENTERIC TABLET PO SCH (11:51)
[2021-10-18] MEDS: QUEtiapine FUMARATE 25 MG TAB PO SCH ×2 (11:51→21:46)
[2021-10-18] MEDS: WARFARIN SOD 3MG TAB PO SCH (17:35)
[2021-10-19 05:03] VITALS: BP 140/72
[2021-10-19 05:25] LABS: HEMATOCRIT 37.4 % (42.0-52.0); HEMOGLOBIN 11.9 g/dl (13.5-17.5); MEAN CORPUSCULAR HEMOGLOBIN 28.7 pg (27.0-33.0); MEAN CORPUSCULAR HGB CONC 31.8 g/dl (32.0-36.5); MEAN CORPUSCULAR VOLUME 90.1 fl (80.0-96.0); PLATELET COUNT, AUTOMATED 394 10^3/uL (150-450); RED BLOOD COUNT 4.15 10^6/uL (4.30-6.10); WHITE BLOOD COUNT 12.2 10^3/uL (4.0-10.0)
[2021-10-19 05:37] LABS: INR 2.4; PROTHROMBIN TIME 26.6 SECONDS (12.7-14.5)
[2021-10-19 05:51] LABS: BLOOD UREA NITROGEN 22 MG/DL (7-18); CALCIUM LEVEL 8.3 MG/DL (8.8-10.2); CARBON DIOXIDE LEVEL 27 MEQ/L (21-32); CHLORIDE LEVEL 108 MEQ/L (98-107); CREATININE FOR GFR 1.05 MG/DL (0.70-1.30); GLOMERULAR FILTRATION RATE > 60.0 (>35); GLUCOSE, FASTING 93 MG/DL (70-100); POTASSIUM SERUM 4.1 MEQ/L (3.5-5.1); SODIUM LEVEL 142 MEQ/L (136-145)
[2021-10-19] MEDS: QUEtiapine FUMARATE 25 MG TAB PO SCH ×2 (13:00→20:28)
[2021-10-19] MEDS: ASPIRIN 81MG ENTERIC TABLET PO SCH (13:00)
[2021-10-19] MEDS: DOCUSATE SODIUM 100MG CAPSULE PO SCH ×2 (13:00→20:28)
[2021-10-19] MEDS: WARFARIN SOD 3MG TAB PO SCH (16:53)
[2021-10-20 05:29] VITALS: BP 137/84
[2021-10-20] MEDS ORDERED: ASPI-551 PO (09:51)
[2021-10-20] MEDS ORDERED: QUET1TAB17 PO (09:51)
[2021-10-20] MEDS ORDERED: DOCU100C16 PO (09:51)
[2021-10-20] MEDS ORDERED: JANT3TAB PO (09:51)
[2021-10-20] MEDS ORDERED: AMLO25TA PO (09:51)
[2021-10-20] MEDS: DOCUSATE SODIUM 100MG CAPSULE PO SCH (10:09)
[2021-10-20] MEDS: QUEtiapine FUMARATE 25 MG TAB PO SCH (10:09)
[2021-10-20] MEDS: ASPIRIN 81MG ENTERIC TABLET PO SCH (10:09)
[2021-10-20 10:10] VITALS: BP 131/72
== END 2021-10-20 11:55 | DRG 305 ==
LOC: EDBD 13:51 → M ED 13:51 → M ED INP 17:13 → M PCU 21:19 → M MSPAV 10-08 19:51
PROVIDERS: ADMIT Internal Medicine; ATTEND Internal Medicine
DX: I16.0 Hypertensive urgency (principal); G30.9 Alzheimer's disease, unspecified; F02.80 Dementia in other diseases classified elsewhere, unspecified severity, without behavioral disturbance, psychotic disturbance, mood disturbance, and anxiety; Z86.73 Personal history of transient ischemic attack (TIA), and cerebral infarction without residual deficits; I48.0 Paroxysmal atrial fibrillation; I25.10 Atherosclerotic heart disease of native coronary artery without angina pectoris; I10 Essential (primary) hypertension; E78.5 Hyperlipidemia, unspecified; N40.0 Benign prostatic hyperplasia without lower urinary tract symptoms; Z20.822 Contact with and (suspected) exposure to COVID-19; Z79.899 Other long term (current) drug therapy; Z79.01 Long term (current) use of anticoagulants; Z88.1 Allergy status to other antibiotic agents; Z88.2 Allergy status to sulfonamides; Z98.41 Cataract extraction status, right eye; Z98.42 Cataract extraction status, left eye; D72.829 Elevated white blood cell count, unspecified; D40.0 Neoplasm of uncertain behavior of prostate; D41.4 Neoplasm of uncertain behavior of bladder; Z66 Do not resuscitate

== ENCOUNTER → 2021-10-22 | Outpatient (REF) | payer MEDICARE, OTHER ==
[~2021-10-22] MED LIST changes: +AMLO25TA PO; +ASPI-551 PO; +DOCU100C16 PO; +JANT3TAB PO; +QUET1TAB17 PO; +VITAD400CA FT; +vitamin; +vitamin d PO
[2021-10-22 11:22] LABS: INR 1.91; PROTHROMBIN TIME 22.3 SECONDS (12.7-14.5)
== END ==
LOC: SKLAB7 07:00
PROVIDERS: ATTEND Internal Medicine
DX: I48.91 Unspecified atrial fibrillation (principal)

== ENCOUNTER → 2021-11-05 | Outpatient (REF) ==
[2021-11-05 10:25] LABS: INR 3.4; PROTHROMBIN TIME 34.6 SECONDS (12.7-14.5)
== END ==
LOC: SKLAB7 07:00
PROVIDERS: ATTEND Internal Medicine
DX: I48.91 Unspecified atrial fibrillation (principal)